=== PATIENT | male | born 1960 | race Caucasian/White ===

== ENCOUNTER → 2017-03-08 | Outpatient (CLI) | payer BC ==
--- NOTE | 2017-03-09 10:14 | XR ---
Right shoulder HISTORY: Right shoulder pain 3 views of the right shoulder There is joint space loss, hypertrophic change of the glenohumeral joint. Subchondral geodes formatio n, sclerosis is present. Alignment is maintained. Bone mineralization is maintained. Right lung apex as visualized is normal. IMPRESSION: Findings suggest osteoarthritis.
== END ==
LOC: RADXRYALE 10:02
PROVIDERS: ATTEND Physician Assistant Medical
DX: M75.02 Adhesive capsulitis of left shoulder (principal)

== ENCOUNTER → 2018-06-06 | Outpatient (CLI) | payer BC ==
--- NOTE | 2018-06-06 08:15 | CT ---
EXAMINATION TYPE: CT shoulder RT wo con DATE OF EXAM: 06/06/2018 COMPARISON: X-ray 03/08/2017 HISTORY: Pain CT DLP: 380 mGycm Automated exposure control for dose reduction was used. FINDINGS: Severe arthropathy with complete loss of joint space and suspected loss of articular cartilage. Hyper trophic spurring along the inferior margin of the humeral head which demonstrates some remodeling. Re modeling of the glenoid noted. There is a soft tissue calcification or ossification anterior to the glenohumeral joint. Likely also represents a small amount of fluid anteriorly to the glenohumeral joint extending medially which coul d be potentially within the subscapularis bursa. Synovial osteochondromatosis in the differential niyah gnosis. AC joint appears to be maintained. Osseous structures are intact. Visualized rib cage intact. Hypertr ophic change of the spine noted. Subsegmental posterior consolidation in the lungs likely related to dependent atelectasis. There is a pulmonary nodule measuring 3 mm in the right upper lobe. IMPRESSION: 1. Severe arthropathy of the glenohumeral joint with complete loss of joint space. 2. There is a 3 mm right upper lobe pulmonary nodule. CT of the chest is recommended. 3. Suspect a tiny joint effusion with probable bursal fluid collection anteromedially. Additionally t here is a soft tissue ossifications or calcifications anterior to the joint space. Synovial chondroma tosis in the differential diagnosis.
== END | disposition home or self-care (01) ==
LOC: RADCTMAIN 07:30
PROVIDERS: ATTEND Orthopaedic Surgery Sports Medicine
DX: M19.011 Primary osteoarthritis, right shoulder (principal)

== ENCOUNTER → 2018-07-07 | Outpatient (CLI) | payer BC ==
--- NOTE | 2018-07-07 08:19 | CT ---
EXAMINATION TYPE: CT chest wo con DATE OF EXAM: 07/07/2018 COMPARISON: CT right shoulder 06/06/[address] abdomen pelvis dated 12/26/2013 HISTORY: Follow up lung nodule seen on prior CT. CT DLP: 292.[address] of the chest was performed with lung and mediastinal window settings submitted. The la ck of contrast limits evaluation of the vascular, mediastinal and parenchymal structures including th e upper abdomen. LUNGS: The lungs are clear and free of infiltrate. No atelectasis. 3 mm pulmonary nodule right upper lobe image 18 of 78. Small 3 mm pleural-based nodule lateral segment right middle lobe. 4 mm pulmonar y nodule image 38 of 78 right lower lobe. No left-sided nodule seen. No evidence for pulmonary mass. No pleural effusion. No CT evidence of interstitial lung disease. MEDIASTINUM/JOVANNI: Thoracic aorta is of normal caliber with limited evaluation given lack of contrast . The heart is not enlarged. No evidence for mediastinal mass. No lymph nodes greater than 1cm. UPPER ABDOMEN: Previously described simple cyst left kidney. Nonobstructing bilateral nephrolithiasis . OTHER: No significant other abnormality. IMPRESSION: 1. Small nonspecific nodularity right lung. Follow-up study in 6 months is advised. 2. Nonobstructing nephrolithiasis in bilateral kidneys measuring up to 4 mm. 3. Cyst left kidney.
== END ==
LOC: RADCTMAIN 07:17
PROVIDERS: ATTEND Family Medicine
DX: R91.1 Solitary pulmonary nodule (principal)
CPT/HCPCS: 71250

== ENCOUNTER 2018-09-01 11:00 | Inpatient (IN) | payer BC ==
[2018-08-29 15:02] VITALS: BMI 28.7
[~2018-09-01 11:00] MED LIST: ACETAMINOPHEN TAB 500 MG TAB PO ONE; DEXAMETHASONE SOD PHOSPHATE 10 MG/ML 1 ML VIAL IV ONE; LIDOCAINE 1% 20 ML VIAL (10MG/ML) FOR IV START INTRADERMA PRN; MELOXICAM 7.5 MG TAB PO ONE; MIDAZOLAM (PF) 2 MG/2 ML VIAL IV PRN; ONDANSETRON 4 MG/2 ML VIAL IVP ONE; TRANEXAMIC ACID 1,000 MG in SODIUM CHLORIDE 0.9% 50 ML IVPB ONE; ceFAZolin IN SWFI 2 GM/20 ML SYRINGE IVP ONE; fentaNYL (PF) 50 MCG/ML 2 ML AMP IV PRN
[2018-09-01] MEDS: LACTATED RINGERS 1,000 ML IV ONE ×2 (12:41→15:57)
[2018-09-01] MEDS ORDERED: TEMAZEPAM 15 MG CAP PO PRN (13:29)
[2018-09-01] MEDS ORDERED: HYDROcodone/APAP 5-325MG 1 EACH TAB PO PRN ×2 (13:29)
[2018-09-01] MEDS ORDERED: METOCLOPRAMIDE 5 MG/ML 2 ML VIAL IVP PRN (13:29)
[2018-09-01] MEDS ORDERED: SENNOSIDES-DOCUSATE SODIUM 1 EACH TAB PO PRN (13:29)
[2018-09-01] MEDS ORDERED: PROCHLORPERAZINE SUPPOSITORY 25 MG SUPP RECTAL PRN (13:29)
[2018-09-01] MEDS ORDERED: diphenhydrAMINE 25 MG CAP PO PRN (13:29)
[2018-09-01] MEDS ORDERED: hydrOXYzine PAMOATE 25 MG CAP PO PRN (13:29)
[2018-09-01] MEDS ORDERED: HYDROmorphone 0.5 MG/0.5 ML SYRINGE IVP PRN ×2 (13:29)
[2018-09-01] MEDS ORDERED: HYDROmorphone 1 MG/ML 1 ML SYRINGE IVP PRN (13:29)
[2018-09-01] MEDS ORDERED: ONDANSETRON 4 MG/2 ML VIAL IVP PRN (13:29)
[2018-09-01] MEDS ORDERED: HYDROcodone/APAP 7.5-325MG 1 EACH TAB PO PRN ×2 (13:34)
[2018-09-01] MEDS ORDERED: HYDROcodone/APAP 10-325MG 1 EACH TAB PO PRN ×2 (13:34)
[2018-09-01] MEDS ORDERED: PHENYLEPHRINE-0.9% NACL SYG 1 MG/10 ML SYRINGE ONE (18:02)
[2018-09-01] MEDS ORDERED: NEOSTIGMINE 1 MG/ML 10 ML VIAL ONE (18:02)
[2018-09-01] MEDS ORDERED: fentaNYL (PF) 50 MCG/ML 2 ML AMP ONE (18:02)
[2018-09-01] MEDS ORDERED: SUCCINYLCHOLINE CHLORIDE 100 MG/5 ML SYR IV ONE (18:02)
[2018-09-01] MEDS ORDERED: ROPIVACAINE 5 MG/ML 30 ML VIAL ONE (18:02)
[2018-09-01] MEDS ORDERED: GLYCOPYRROLATE 0.2 MG/ML 2 ML VIAL ONE (18:02)
[2018-09-01] MEDS ORDERED: LIDOCAINE 1% INJ 10MG/ML (20 ML MDV) ONE (18:02)
[2018-09-01] MEDS ORDERED: MIDAZOLAM 2 MG/2 ML VIAL ONE (18:02)
[2018-09-01] MEDS ORDERED: ePHEDrine SULFATE/0.9% NACL/PF 50 MG/5 ML SYRINGE IV ONE (18:02)
[2018-09-01] MEDS ORDERED: ROCURONIUM BROMIDE 10 MG/ML 10 ML VIAL IV ONE (18:02)
[2018-09-01] MEDS ORDERED: PROPOFOL 10 MG/ML 20 ML VIAL IV ONE (18:02)
[2018-09-01] MEDS ORDERED: IV FLUID CONTINUATION 1,000 ML IV ONE (18:05)
[2018-09-01] MEDS ORDERED: VANCOMYCIN 1,000 MG VIAL MISCELLANE ONE (18:56)
[2018-09-01] MEDS ORDERED: ceFAZolin 3,000 MG in SODIUM CHLORIDE 0.9% IRRIGATIO 3,000 ML IRRIGATION ONE (18:57)
[2018-09-01] MEDS ORDERED: LACTATED RINGERS 1,000 ML IV ONE (19:48)
[2018-09-01 21:17] VITALS: RESP 16
[2018-09-01] MEDS: HYDROmorphone 1 MG/ML 1 ML SYRINGE IVP ONE ×2 (21:18→21:23)
--- NOTE | 2018-09-01 21:28 | XR ---
EXAMINATION TYPE: XR shoulder limited RT DATE OF EXAM: 09/01/2018 COMPARISON: NONE HISTORY: Postop shoulder surgery TECHNIQUE: Single view FINDINGS: There is a right shoulder prosthesis. Components appear in anatomic position. IMPRESSION: No complicating process seen.
[2018-09-01] MEDS: LACTATED RINGERS 1,000 ML IV SCH ×2 (22:07→23:16)
[2018-09-01] MEDS: ceFAZolin IN SWFI 2 GM/20 ML SYRINGE IVP SCH ×2 (23:17→23:36)
[2018-09-01] MEDS: DOXYCYCLINE 100 MG CAP PO SCH (23:37)
--- NOTE | 2018-09-02 00:58 | OP ---
OPERATIVE REPORT DATE OF PROCEDURE: 09/01/2018. SURGEON: Higinio Benedict MD. MAINTENANCE PARTS TECHNICIAN: Vijay HIGUERA. PREOPERATIVE DIAGNOSIS: Right shoulder osteoarthrosis. POSTOP DIAGNOSIS: Right shoulder osteoarthrosis. OPERATION PERFORMED: Right total shoulder arthroplasty. ANESTHESIA: General endotracheal. ESTIMATED BLOOD LOSS: 300 mL. DRAINS: One deep drain. COMPLICATIONS: None apparent. DISPOSITION: Postanesthesia care unit. INDICATIONS: Mr. Quiroz is a very pleasant 58-year-old gentleman with long-standing right shoulder pain. Workup including x-rays revealed advanced osteoarthrosis of the right shoulder. At this point it is felt that he has failed conservative management and he would like to proceed with operative intervention. The risks of procedure were discussed with him in detail. These risks include, but are not limited to risk of infection, nerve damage, bleeding, pain, instability in the shoulder, loosening of the implants and deep infection. There is also small risk of deep vein thrombosis which could lead to fatal pulmonary embolism. The patient understood the risks. All of his questions with regards to the risks of procedure were answered to his satisfaction. Appropriate informed consent was obtained. DESCRIPTION OF PROCEDURE: Patient was identified in the preoperative holding area. Surgical sites marked by both the patient and myself. He is given 2 g of Ancef IV for prophylaxis for prophylactic purposes. He was then transferred to the operative suite, where he was placed supine on the operative table. General anesthetic was then administered and dosed per the anesthesia without apparent complication. Examination under anesthesia was then performed of the right shoulder. He had elevation to passive elevation 120 degrees. External rotation at the side was to 30 degrees. He was then placed into the beach chair position well-padded in preparation for surgery. Great care was taken to ensure that this legs were appropriately padded and that his cervical spine is in neutral alignment well-padded and maintained that way throughout the operative procedure. The patient's right upper extremity is then prepped and draped in usual sterile fashion. Standard surgical pause undertaken to ensure that we were operating the correct site and that appropriate preoperative antibiotics were given. All staff in the room in agreement and we proceeded. The acromion AC joint clavicle and coracoid were marked with a surgical pen. A planned incision starting at the level of the clavicle and extending distally over the deltopectoral interval approximately 1 cm lateral to the coracoid was marked with a surgical pen. The incision was then made with a 10 blade scalpel. Dissection carried down sharply to the deltoid fascia. The deltopectoral interval was identified at the level of the clavicle. A small band retractor was then placed onto the proximal deltoid. I then released the deltoid fascia on the lateral aspect of the cephalic vein. The vein was then left in its bed medially. The cephalic vein was protected throughout the entire case. I then identified the clavipectoral fascia. This was incised proximally to the level of the coracoacromial ligament. The coracoacromial ligament was left intact. I then used my finger to spread the interval between the conjoint tendon and the subscapularis. I felt for the axillary nerve which was readily palpable. I then cleared the subacromial and subdeltoid spaces of bursal and scar tissue. I then utilized a Hill retractor to hold the deltoid and expose the humeral head. I then proceeded to release the subscapularis in the anterior inferior shoulder capsule. The rotator cuff was inspected. It was found to be intact. The course of the biceps tendon was also identified. I then performed a biceps tenodesis. The biceps was tenodesed to the soft tissue just distal to the bicipital groove. The rotator interval was identified. I then released the rotator interval. This was released at the base of the coracoid and then out laterally. The subscapularis and the capsule were released intratendinous. The subscapularis and capsule release extended distally in a lazy-S fashion approximately 1 cm medial to the biceps tendon. I then continued to release the capsule along the inferior neck in a vertical fashion to about the 6 o'clock position. Great care was taken to ensure that the capsule was always visualized as it was released to avoid injuring the axillary nerve. He had very extensive and large goat's patterson osteophytes. I then began to start removing these. This was done with a rongeur as well as with a osteotome. I then brought the Barrera meat grinder with the arm externally rotated and abducted. I continued to release the capsule inferomedially to the 4 o'clock position. I continued to remove the inferior osteophytes as well. Again this was done with a rongeur and an osteotome. Great care was taken to avoid injuring the axillary nerve during this part of the procedure. I then proceeded with preparation of the humerus. I continued to remove all the goat's patterson osteophytes. I then removed the subchondral plate from the superior aspect of the humeral head utilizing a large rongeur. I then used a starter reamer to gain access to the humeral canal. This was 1 cm medial to the rotator cuff insertion and 1 cm posterior to the bicipital groove. I then prepared the humeral canal with hand reaming. I started with a 6 mm reamer and progressed incrementally in 1 mm increments until firm resistance was encountered. This was at 14 mm. The reamer handle was then left in place. I then utilized a humeral resection guide set at 30 degrees of retrotorsion. The cutting block was set 1 to 2 mm above the insertion of the rotator cuff. I then proceeded to osteotomized the humeral head with an oscillating saw. I removed the resection guide and then completed the osteotomy. I then proceeded with 2 trial stem placement. A trial size 14 was then broached starting with a 6 mm broach and then incrementally increasing up to 14 mm broach. The broach was placed in 30 degrees of retrotorsion. The 14 mm trial stem was then left in place. I then proceeded with trial reduction. I started with a 50 x 21 x 57 head. This did seem to fit very nicely. The head fit opposite the glenoid. The rotator cuff was not tented. The internal rotation was to 90 degrees external rotation. Elevation was to 150 degrees and translation was one half of the humeral head in neutral rotation and one quarter of the humeral head inferiorly in 15-20 degrees of abduction. I then removed the trial head. The stem was then left in place. I then proceeded with exposure of the glenoid. At this point, I inspected the glenohumeral joint for any loose bodies. Then again inspected the rotator cuff, which was intact. The Batman retractor was then placed on the posterior glenoid rim. The arm was placed in approximately 70-80 degrees of abduction and in slight flexion on a Barrera stand. I then proceeded to remove the hypertrophic labrum to definitively identify the actual glenoid. I then selected the size of the glenoid. A large-size glenoid seemed to fit very nicely. I then utilized a starting drill to make the centering hole. I then proceeded to ream the glenoid fossa. This was done with a large size reamer. There was a tiny bit of posterior inferior loss. I preferentially took slightly more anterior glenoid with the reaming. Reaming was taken down to paprika signs. I had a nice bleeding surface. Great care was taken to preserve as much of subchondral bone as possible. I then proceeded to place the glenoid drill holes. The peripheral drill holes were then placed and the center hole was also drilled as well. I then placed a trial size large size glenoid. It fit very nicely on the glenoid. I then proceeded with cementing. I Waterpik'd the wound and the bone. The drill holes were then packed with [employer] sponges. The cement was then mixed on the back table by the hospital aides and assistants teacher. The drill holes were then packed with cement utilizing a 20 mL syringe. These were packed very tightly. No cement was placed in the central PEG, which was the Regenerex central PEG from the glenoid component. I then impacted the real glenoid component into place. It was a Biomet large-sized pegged glenoid component with a Regenerex central peg. Excess cement was removed utilizing a freer elevator. Pressure was held on the glenoid component until the cement had hardened. I then removed the Coude retractor. I then proceeded with the humeral component trial reduction with the actual with the real glenoid in place. The 21 x 57 head was then placed back onto the stem. Again it was taken through trial. The head set opposite the glenoid. The rotator cuff was not tented. Elevation was 250 degrees. Internal rotation was to 90 degrees and translation was one half of the head in neutral rotation and one quarter of the head in 15-20 degrees of abduction. I then had the volunteer patient representative open the 50 x 21 x 57 real head and a size 14 Biomet mini stem. The stem was then impacted into the canal and 30 degrees of retrotorsion. The real head was then impacted onto the stem. The shoulder was then reduced. I then proceeded with closure. Again the wound was thoroughly irrigated with sterile saline solution with antibiotic added. The rotator interval was closed with interrupted #2 coated Vicryl. The subscapularis was closed with interrupted #2 FiberWire. Deep drain was then placed and brought out superiorly away from the incision. Approximately 500 mg of vancomycin powder was then placed deep into the wound. The deltopectoral interval was then closed with 0 Vicryl suture. The wound was again thoroughly irrigated with sterile saline solution with antibiotic added. The remaining 500 mg of vancomycin powder was then placed subcutaneously in the wound. The subcutaneous tissue was then closed with 2-0 Vicryl interrupted suture. The skin was closed with a running 3-0 Quill suture. Sterile compressive dressing was then applied. The patient's right upper extremity was then placed into a shoulder immobilizer. All sponge and needle counts were deemed correct prior to closure. The patient tolerated the procedure without apparent complication. He is transferred recovery room in stable condition. Of note, prior to closing the deltopectoral interval, I did feel for the axillary nerve and it was intact. The tug test was normal. MMODL / IJN: [id number] /
[2018-09-02] MEDS: LACTATED RINGERS 1,000 ML IV SCH ×3 (06:09→09:48)
[2018-09-02 07:23] LABS: Basophils % (A) 0 %; Eosinophils % (A) 0 %; HCT 39.9 % (39.0-53.0); HGB 13.6 gm/dL (13.0-17.5); Lymphocytes # (A) 1.4 k/uL (1.0-4.8); Lymphocytes % (A) 11 %; MCH 30.1 pg (25.0-35.0); MCHC 34.1 g/dL (31.0-37.0); MCV 88.2 fL (80.0-100.0); Mean Platelet Volume 7.3; Monocytes # (A) 0.6 k/uL (0-1.0); Monocytes % (A) 4 %; Neutrophils % (A) 84 %; Platelet Count 216 k/uL (150-450); RBC 4.53 m/uL (4.30-5.90); RDW 12.7 % (11.5-15.5); WBC 13.1 k/uL (3.8-10.6)
--- NOTE | 2018-09-02 07:43 | P.ONQ ---
Anesthesiology Proc Note - PNB - Peripheral Nerve Block Performed Right Interscalene Single Time Out Performed: Yes Procedure Start Time: 21:33 Procedure Stop Time: 21:35 Indication: Acute Post-Operative Pain, Requested by physician Sedation Type: Sedate with meaningful contact maintained Preparation: Sterile Prep Position: Supine Needle Size: 50mm (2") Needle Gauge: 21 Technique: Ultrasound (ropi .5% 30cc) Blood Aspirated: No Pain Paresthesia on Injection Noted: No Resistance on Injection: Normal Events: Uneventful and Well Tolerated
[2018-09-02] MEDS: DOXYCYCLINE 100 MG CAP PO SCH (09:47)
--- NOTE | 2018-09-02 10:09 | P.CON ---
Consult Note - . Consult date: 09/02/18 Assessment/Plan:: Reason for consult: Leukocytosis, medical management. HPI: This is a very pleasant 58-year-old gentleman with no significant past medical history is seen status post right shoulder total arthroplasty last night. This morning the patient complains of no fever no chills, no chest pain or racing heart, no cough no shortness of breath, no abdominal pain, nausea and vomiting, no diarrhea constipation, no tingling numbness of any of the extremities except for the right 2 fingers which probably is because of the surgery, no itch no rash. He does not complain of an of urinary problems. REVIEW OF SYSTEMS: ENT: No diminished vision or hearing. CARDIOVASCULAR: Mentioned earlier. RESPIRATORY: As mentioned earlier. GI: No nauscea, vomiting or diarrhea. : No dysuria or retention. NERVOUS SYSTEM: No numbness or weakness. ALLERGY/IMMUNOLOGY: No asthma or hay fever. MUSCULOSKELETAL: As mentioned earlier. HEMATOLOGY/ONCOLOGY: No history of anemia. ENDOCRINE: No history of diabetes or hypothyroidism. CONSTITUTIONAL: As mentioned earlier. DERMATOLOGY: Negative. PSYCHIATRY: Mentioned earlier. RHEUMATOLOGY: Negative. Past medical history: No significant past medical history except for right shoulder arthritis Past surgical history: Prostate removal, hernia repair with mesh Family history: Noncontributory Social history: Patient says that he doesn't smoke, drink socially, no history of any marijuana or cocaine use. Next Physical exam Vitals: Reviewed and are stable Gen. appearance: Patient has a sling status post right shoulder surgery otherwise he doesn't look to be in distress HEENT: Head atraumatic normocephalic, PERRLA, no pallor no icterus, no pain or discharge from the ear or nose Throat: No erythema no exudate Neck: No JVD no neck enlargement or thyroid enlargement CVS: S1-S2 positive Respiration: Breath sounds heard equally both sides no rhonchi,,, no rales, no wheezing Neuro: Alert oriented 3, reflexes 2+ all extremities, strength 5 out of 5 positive on extremities Extremities: No edema pulses positive Assessment - Leukocytosis probably reactive - Status post right shoulder arthroplasty Plan - Patient has leukocytosis which is probably reactive patient does not complain of any chest pain racing heart, no urinary trouble, he does not look toxic. -We will therefore hold off on all the antibiotics - Patient is okay to discharge from medical point of view and follow up as an outpatient - We'll continue to follow the patient while in the hospital. - DVT prophylaxis as per primary team
--- NOTE | 2018-09-02 11:43 | P.DS ---
Providers Date of admission: 09/01/18 15:35 Expected date of discharge: 09/02/18 Attending physician: Higinio Benedict Consults: 09/01/18 13:29 Consult Physician Routine Consulting Provider: Elijah Whittington Consult Reason/Comments: post op medical management Do you want consulting provider notified?: Yes Primary care physician: Ashok Daniel - Discharge Diagnosis(es) (1) Osteoarthritis of right shoulder Patient was admitted to the OR on 09/01/2018 to undergo a right total shoulder arthroplasty. He had failed conservative measures as an outpatient and desired to proceed with elective surgery after given informed consent. He underwent the above procedure which he tolerated well without complication. Postoperative hospital course has remained without complication. On day of discharge he is afebrile, vital signs stable, labs within acceptable ranges, tolerating by mouth meds and diet, voiding without difficulty, positive flatus, denies abdominal pain or calf pain, pain is controlled on oral pain medication and has no new complaints. Wound is benign, neurovascular status is intact, calf is soft and nontender, abdomen soft and nontender. Review of systems is negative for numbness, tingling, fever, chills, chest pain, shortness breath, nausea, vomiting, dizziness, headaches, slurred speech or other. Current Visit: Yes Status: Acute Priority: Medium Procedures: Right Total Shoulder arthroplasty Patient Condition at Discharge: Good Plan - Discharge Summary Discharge Rx Participant: Yes New Discharge Prescriptions: New Aspirin 325 mg PO BID #60 tab Docusate [Colace] 100 mg PO BID #60 capsule HYDROcodone/APAP 7.5-325MG [[place] 7.5-325] 1 - 2 each PO Q6HR PRN #56 tab PRN Reason: Pain Discharge Medication List Aspirin 325 mg PO BID #60 tab 09/02/18 [Rx] Docusate [Colace] 100 mg PO BID #60 capsule 09/02/18 [Rx] HYDROcodone/APAP 7.5-325MG [[place] 7.5-325] 1 - 2 each PO Q6HR PRN #56 tab [Rx] Follow up Appointment(s)/Referral(s): Higinio Benedict MD [STAFF PHYSICIAN] - 10 Days Activity/Diet/Wound Care/Special Instructions: Keep wound clean and dry Take meds as directed Follow-up with Dr. Benedict in office Maintain sling Nonweightbearing right up extremity May shower in 3 days if no bleeding Discharge Disposition: HOME WITH HOME HEALTH SERVICES
[2018-09-02 14:20] VITALS: BP 139/79; PULSE 67; TEMP 98
== END 2018-09-02 18:50 | disposition home health service (06) | DRG 483 ==
LOC: 2ORMAIN 15:35 → 4SSUR 22:25
PROVIDERS: ADMIT Orthopaedic Surgery Sports Medicine; ATTEND Orthopaedic Surgery Sports Medicine
PROC: 0RRJ00Z Replacement of Right Shoulder Joint with Reverse Ball and Socket Synthetic Substitute, Open Approach (ICD-10-PCS; principal; 2018-09-01 17:35)
DX: M19.011 Primary osteoarthritis, right shoulder (principal); Z82.49 Family history of ischemic heart disease and other diseases of the circulatory system; D72.829 Elevated white blood cell count, unspecified
CPT/HCPCS: 64415; 85025

== ENCOUNTER → 2019-08-29 | Outpatient (CLI) | payer BC ==
--- NOTE | 2019-08-30 08:09 | CT ---
EXAMINATION TYPE: CT chest wo con DATE OF EXAM: 08/29/2019 COMPARISON: 07/07/2018 HISTORY: abnormal cxr CT DLP: 373.1 mGycm, Automated exposure control for dose reduction was used. CONTRAST: Performed injected with 0 mL of Isovue 300. TECHNIQUE: Axial images were obtained at 5 mm thick sections. Reconstructed images are reviewed on [facility] computer in the coronal plane. FINDINGS: Portion of the thyroid visualized is normal. There is a 0.4 cm nodule within the periphery of the posterior lateral right apex. Series 4 image 13. There is a 0.3 cm peripheral nodule within the right midlung. Series 4 image 28. A couple of new left lung nodules are identified. There is a 0.4 cm nodule within the periphery of t he anterior lateral left upper lobe. A 0.3 cm nodule is in the periphery of the anterolateral left m idlung. Series 4 image 24. No enlarged mediastinal or hilar adenopathy is evident. The ascending aorta diameter at the level o f the main pulmonary artery is 3.7 cm. The main pulmonary artery diameter at the bifurcation is 2.2 cm. Mild coronary artery calcifications present. Limited CT sections are obtained through the upper abdomen. 0.3 cm nonobstructing calcifications are within the mid kidneys bilaterally. IMPRESSIONS: 1. Couple of small stable nodules on the right. A couple of new nodules may be on the left. Continued monitoring is recommended with a follow-up CT chest in 6 months
== END | disposition home or self-care (01) ==
LOC: RADCTMAIN 16:41
PROVIDERS: ATTEND Family Medicine
DX: R91.8 Other nonspecific abnormal finding of lung field (principal)
CPT/HCPCS: 71250

== ENCOUNTER → 2020-03-29 | Outpatient (CLI) | payer BC ==
--- NOTE | 2020-03-29 08:18 | CT ---
EXAMINATION TYPE: CT chest wo con DATE OF EXAM: 03/29/2020 COMPARISON: 08/29/2019 HISTORY: follow up known pulmonary nodule CT DLP: [address] of the chest was performed with lung and mediastinal window settings submitted. The la ck of contrast limits evaluation of the vascular, mediastinal and parenchymal structures including th e upper abdomen. LUNGS: 3 mm pleural-based nodular density right upper lobe posteriorly image 15. 3 mm right upper lob e pulmonary nodule anteriorly image 19. 3.3 mm groundglass nodule right lower lobe superior segment i mage 33. 4 mm left upper lobe nodule image 28. No new nodules identified. No focal infiltrates seen. MEDIASTINUM/JOVANNI: Thoracic aorta is of normal caliber with limited evaluation given lack of contrast . The heart is not enlarged. No evidence for mediastinal mass. No lymph nodes greater than 1cm. UPPER ABDOMEN: 3 mm nonobstructing calculus upper pole left kidney. OTHER: No significant other abnormality. IMPRESSION: 1. Stable tiny nonspecific pulmonary nodules. Stability over a two-year timeframe should be document ed radiographically. Follow-up study in 6 months advised.
== END | disposition home or self-care (01) ==
LOC: RADCTMAIN 07:53
PROVIDERS: ATTEND Family Medicine
DX: R91.8 Other nonspecific abnormal finding of lung field (principal)
CPT/HCPCS: 71250

== ENCOUNTER → 2020-05-07 | Outpatient (CLI) | payer BC ==
--- NOTE | 2020-05-07 13:02 | US ---
EXAMINATION TYPE: US kidneys/renal and bladder DATE OF EXAM: 05/07/2020 COMPARISON: NONE CLINICAL HISTORY: N28.1 Cyst of kidney. EXAM MEASUREMENTS: Right Kidney: 11.4 x 4.9 x 6.2 cm Left Kidney: 11.8 x 6.4 x 6.4 cm Right Kidney: No hydronephrosis or masses seen Left Kidney: 2 probable cyst measuring, 1.) 1.9 x 2.6 x 2.0cm 2.) 2.0 x 2.5 x 2.2cm, probable stone, measuring 0.4 x 0.4 x 0.4cm Bladder: wnl Bilateral Jets seen: No There is no evidence for hydronephrosis at this point in time. No nephrolithiasis is seen. No solid masses are identified. The urinary bladder is anechoic. Bilateral ureteral jets are seen. IMPRESSION: Left renal cystic changes as noted.
== END | disposition home or self-care (01) ==
LOC: RADUSWWP 12:07
PROVIDERS: ATTEND Urology
DX: N28.1 Cyst of kidney, acquired (principal)
CPT/HCPCS: 76770

== ENCOUNTER 2020-07-12 08:31 | Day surgery (SDC) | payer BC ==
[2020-07-11 09:34] VITALS: BMI 28.5
[~2020-07-12 08:31] MED LIST changes: -ACETAMINOPHEN TAB 500 MG TAB PO ONE; -DEXAMETHASONE SOD PHOSPHATE 10 MG/ML 1 ML VIAL IV ONE; +LACTATED RINGERS 1,000 ML IV SCH; +LIDOCAINE 1% (10MG/ML) FOR IV START INTRADERMA PRN; -LIDOCAINE 1% 20 ML VIAL (10MG/ML) FOR IV START INTRADERMA PRN; -MELOXICAM 7.5 MG TAB PO ONE; -MIDAZOLAM (PF) 2 MG/2 ML VIAL IV PRN; -ONDANSETRON 4 MG/2 ML VIAL IVP ONE; -TRANEXAMIC ACID 1,000 MG in SODIUM CHLORIDE 0.9% 50 ML IVPB ONE; -ceFAZolin IN SWFI 2 GM/20 ML SYRINGE IVP ONE; -fentaNYL (PF) 50 MCG/ML 2 ML AMP IV PRN
[2020-07-12 09:00] VITALS: TEMP 97.7
[2020-07-12] MEDS ORDERED: PROPOFOL 10 MG/ML 20 ML VIAL IV ONE (09:25)
--- NOTE | 2020-07-12 09:56 | P.PCN ---
Date of Procedure: 07/12/20 Procedure(s) Performed: BRIEF HISTORY: Patient is a 59-year-old pleasant white male scheduled for an elective colonoscopy as a part of screening for colorectal neoplasia. PROCEDURE PERFORMED: Colonoscop with snare polypectomy . PREOPERATIVE DIAGNOSIS: Greening for colon cancer. IV sedation per Anesthesia. PROCEDURE: After informed consent was obtained, the patient, was brought into the endoscopy unit. IV sedation was administered by Anesthesia under continuous monitoring. Digital rectal examination was normal. Initially the Olympus CF-160 flexible video colonoscope was then inserted in the rectum, gradually advanced into the cecum without any difficulty. Careful examination was performed as the scope was gradually being withdrawn. Ileocecal valve and the appendiceal orifice were visualized and appeared normal. Prep was excellent. In the cecum there were 2 polyps measuring 5 mm and 7 mm size both of which were sessile and broad- based removed by snare polypectomy. Mucosa of the cecum, ascending colon, transverse colon, descending colon, sigmoid colon, and rectum appeared normal. Retroflexion was performed in the rectum and no lesions were seen. The patient tolerated the procedure well. IMPRESSION: 5 mm and 7 mm cecal polyp status post polypectomy Rest of the colon appeared normal RECOMMENDATIONS: Findings of this examination were discussed with the patient as well as his family. He was advised to follow with the biopsy results. If the biopsy shows an adenoma he can have a repeat colonoscopy in 5 years..
[2020-07-12 10:16] VITALS: BP 145/77; PULSE 57; RESP 16
== END 2020-07-12 10:53 | disposition home or self-care (01) ==
LOC: ORWHC2ENDO 08:31
PROVIDERS: ATTEND Internal Medicine Gastroenterology
DX: Z12.11 Encounter for screening for malignant neoplasm of colon (principal); D12.0 Benign neoplasm of cecum; Z85.46 Personal history of malignant neoplasm of prostate; Z88.0 Allergy status to penicillin
CPT/HCPCS: 45385; 88305; J2704

== ENCOUNTER → 2021-07-25 | Outpatient (CLI) | payer BC ==
--- NOTE | 2021-07-26 15:26 | XR ---
EXAMINATION TYPE: XR cervical spine comp DATE OF EXAM: 07/25/2021 COMPARISON: None HISTORY: Cervicalgia TECHNIQUE: 5 view cervical spine FINDINGS: The odontoid as visualized appears normal. Tip is obscured by the occiput. Prevertebral spa ce is normal. Anterior vertebral body spurring is present C5-C7. There appears to be some kyphosis ce ntered at C6. Posterior spinal lamellar line appears intact. Foraminal stenosis present C5-6 bilatera lly greater on the right. Foraminal stenosis is also present at C3-4 and to a lesser degree C4-5 on t he left. IMPRESSION: 1. Multilevel degenerative changes. No acute osseous abnormality is evident. Foraminal stenosis is p resent. Consider MRI for additional workup.
--- NOTE | 2021-07-26 15:26 | XR ---
EXAMINATION TYPE: XR lumbosacral spine min 4V DATE OF EXAM: 07/25/2021 COMPARISON: None HISTORY: Lumbar pain TECHNIQUE: 5 view lumbar spine FINDINGS: There is loss of disc height through the lumbar spine. There is straightening of the lumbar spine in the lateral projection. Some wedge deformity is present T12. Mild scoliosis is present. Fac et degenerative changes are present. No spondylolytic defects are evident. IMPRESSION: 1. Degenerative disc changes throughout the lumbar spine. 2. Spondylosis.
== END | disposition home or self-care (01) ==
LOC: RADXRYALE 16:33
PROVIDERS: ATTEND Family Medicine
DX: M47.816 Spondylosis without myelopathy or radiculopathy, lumbar region (principal); M47.812 Spondylosis without myelopathy or radiculopathy, cervical region; M99.71 Connective tissue and disc stenosis of intervertebral foramina of cervical region
CPT/HCPCS: 72050; 72110

== ENCOUNTER → 2021-08-30 | Outpatient (CLI) | payer BC ==
--- NOTE | 2021-08-30 20:33 | MR ---
EXAMINATION TYPE: MR cervical spine wo con DATE OF EXAM: 08/30/2021 COMPARISON: None HISTORY: Cervicalgia, Disc degeneration Multiplanar multiecho imaging of the cervical spine without contrast. Cervical vertebra have fairly normal alignment. There is a slight dextroscoliosis. There is posterior endplate spur formation and disc bulging from C3 to C7. There is facet arthropathy and narrowing of the spinal canal at C5-4 and C4-5. Canal measures 6.5 mm at C3-4. Canal measures 6 mm at C4-5. There is some edema in the cord at the C4-5 level. There is mild flattening of the cord. The brainstem is i ntact. There is no compression fracture. There is a very minimal C4-5 subluxation. I see no focal bon e destruction. IMPRESSION: Spinal stenosis at C3-4 and C4-5. There is some edema in the cord and myelomalacia at the C4-5 level. No fracture.
== END | disposition home or self-care (01) ==
LOC: RADMRIMAIN 15:14
PROVIDERS: ATTEND Family Medicine
DX: M50.320 Other cervical disc degeneration, mid-cervical region, unspecified level (principal); M48.02 Spinal stenosis, cervical region; G95.89 Other specified diseases of spinal cord
CPT/HCPCS: 72141

== ENCOUNTER → 2021-11-28 | Outpatient (CLI) | payer BC ==
[2021-11-28 17:08] LABS: Appearance,Urine Clear (Clear); Bilirubin,Urine Negative (Negative); Blood,Urine Negative (Negative); Color,Urine Light Yellow; Glucose,Urine (UA) Negative (Negative); Ketones,Urine Negative (Negative); Leukocyte Esterase,Urine Negative (Negative); Nitrite,Urine Negative (Negative); Protein,Urine Negative (Negative); Specific Gravity,Urine 1.004 (1.001-1.035); Urobilinogen,Urine <2.0 mg/dL (<2.0)
[2021-11-28 17:14] LABS: Partial Thromboplastin Time 24.8 sec (22.0-30.0)
[2021-11-28 21:26] LABS: INR 1.1 (<1.2); Prothrombin Time 11.8 sec (9.0-12.0)
[2021-11-29 00:44] LABS: African American GFR (CKD) 93.1 (60.0-200.0); Albumin 4.4 g/dL (3.8-4.9); Albumin/Globulin Ratio 1.76 (1.60-3.17); Anion Gap 13.5 mmol/L (10.00-18.00); BUN/Creat Ratio 18.2 Ratio (12.00-20.00); Blood Urea Nitrogen 18.2 mg/dL (9.0-27.0); Calcium 9.3 mg/dL (8.7-10.3); Carbon Dioxide 21.5 mmol/L (20.0-27.5); Globulin 2.5 g/dL (1.6-3.3); Non-African American GFR(CKD) 80.3 (60.0-200.0); Potassium 3.7 mmol/L (3.5-5.5); Total Bilirubin 1.7 mg/dL (0.30-1.20); Total Protein 6.9 g/dL (6.2-8.2)
[2021-11-29 01:14] LABS: HCT 41.5 % (39.6-50.0); HGB 14.1 g/dL (13.0-17.0); MCH 30.1 pg (27.0-32.0); MCV 88.5 fL (80.0-97.0); Mean Platelet Volume 11.1 fL (9.5-12.2); NRBC Per 100 WBC 0 /100 WBCS (0.0-0.0); Platelet Count 231 X 10*3/uL (140-440); RBC 4.69 X 10*6/uL (4.40-5.60); RDW 12.4 % (11.5-14.5)
--- NOTE | 2021-11-29 07:21 | XR ---
EXAMINATION TYPE: XR chest 2V DATE OF EXAM: 11/28/2021 COMPARISON: Chest CT March 29, 2020 HISTORY: Presurgical study. TECHNIQUE: Frontal and lateral views of the chest are obtained. FINDINGS: There is no focal air space opacity, pleural effusion, or pneumothorax seen. The cardiac silhouette size remains within normal limits. Postsurgical change to the right shoulder is partially imaged IMPRESSION: No acute process.
== END | disposition home or self-care (01) ==
LOC: LABWHC1 15:43
PROVIDERS: ATTEND Orthopaedic Surgery Orthopaedic Surgery of the Spine
DX: Z01.818 Encounter for other preprocedural examination (principal); I49.3 Ventricular premature depolarization; I45.10 Unspecified right bundle-branch block; M48.02 Spinal stenosis, cervical region
CPT/HCPCS: 71046; 80053; 81003; 85027; 85610; 85730; 87070; 93005

== ENCOUNTER 2021-12-24 06:21 | Observation (INO) | payer BC ==
[2021-12-22 10:15] VITALS: BMI 31.0
[~2021-12-24 06:21] MED LIST changes: -LACTATED RINGERS 1,000 ML IV SCH; -LIDOCAINE 1% (10MG/ML) FOR IV START INTRADERMA PRN; +ceFAZolin 1,000 MG in SODIUM CHLORIDE 0.9% IRRIGATIO 1,000 ML IRRIGATION PRN
[2021-12-24] MEDS ORDERED: MIDAZOLAM 2 MG/2 ML VIAL IV PRN (06:35)
[2021-12-24] MEDS ORDERED: DEXAMETHASONE SOD PHOSPHATE 4 MG/ML 1 ML VIAL IV ONE (06:35)
[2021-12-24] MEDS ORDERED: LIDOCAINE 1% (10MG/ML) FOR IV START INTRADERMA PRN (06:35)
[2021-12-24] MEDS: LACTATED RINGERS 1,000 ML IV SCH (06:50)
[2021-12-24] MEDS ORDERED: HYDROmorphone 0.5 MG/0.5 ML SYRINGE IVP PRN ×2 (07:00→10:59)
[2021-12-24] MEDS: ONDANSETRON 4 MG/2 ML VIAL IVP ONE ×2 (07:04→15:10)
[2021-12-24] MEDS ORDERED: fentaNYL (PF) 50 MCG/ML 2 ML AMP ONE (07:26)
[2021-12-24] MEDS ORDERED: ROCURONIUM 10 MG/ML (5 ML VIAL) IV ONE (07:26)
[2021-12-24] MEDS ORDERED: ePHEDrine 50 MG/ML 1 ML VIAL ONE (07:26)
[2021-12-24] MEDS ORDERED: LIDOCAINE 1% INJ 10MG/ML (20 ML MDV) ONE (07:26)
[2021-12-24] MEDS ORDERED: GLYCOPYRROLATE 0.2 MG/ML 2 ML VIAL ONE (07:26)
[2021-12-24] MEDS ORDERED: NEOSTIGMINE 1 MG/ML 10 ML VIAL ONE (07:26)
[2021-12-24] MEDS ORDERED: DEXAMETHASONE SOD PHOS (MDV) 100 MG/10 ML VIAL ONE (07:26)
[2021-12-24] MEDS ORDERED: HYDROmorphone (PF) 1 MG/ML ONE (07:26)
[2021-12-24] MEDS ORDERED: PROPOFOL 10 MG/ML 20 ML VIAL IV ONE (07:26)
[2021-12-24] MEDS ORDERED: SUCCINYLCHOLINE CHLORIDE 100 MG/5 ML SYR IV ONE (07:26)
[2021-12-24] MEDS ORDERED: MIDAZOLAM 2 MG/2 ML VIAL ONE (07:26)
[2021-12-24] MEDS ORDERED: GELATIN SPONGE,ABSORB (LARGE) 1 EACH SPONGE TOPICAL ONE (07:29)
[2021-12-24] MEDS ORDERED: LIDOCAINE 0.5%-EPI 1:200,000 50 ML VIAL SQ ONE (07:29)
[2021-12-24] MEDS ORDERED: THROMBIN (BOVINE) 5,000 UNIT VIAL TOPICAL ONE (07:29)
--- NOTE | 2021-12-24 08:47 | XR ---
EXAMINATION TYPE: XR cervical spine 1V DATE OF EXAM: 12/24/2021 COMPARISON: NONE HISTORY: Needle placement TECHNIQUE: Four views are submitted. FINDINGS: The odontoid is intact. There are no compression deformities. The prevertebral soft tissue structur es are within normal limits. There is a surgical metallic instrument anterior to the vertebral colum n. ET tube is suggested. There is multilevel degenerative disc disease, spurring and facet arthropath y. IMPRESSION: 1. Needle placement.
[2021-12-24] MEDS ORDERED: LACTATED RINGERS 1,000 ML IV ONE (09:57)
[2021-12-24] MEDS ORDERED: CYCLOBENZAPRINE 10 MG TAB PO PRN (10:59)
[2021-12-24] MEDS ORDERED: ONDANSETRON 4 MG/2 ML VIAL IVP PRN (10:59)
[2021-12-24] MEDS ORDERED: ACETAMINOPHEN TAB 325 MG TAB PO PRN (10:59)
[2021-12-24] MEDS ORDERED: HYDROcodone/APAP 5-325MG 1 EACH TAB PO PRN (10:59)
[2021-12-24] MEDS ORDERED: HYDROmorphone 1 MG/ML 1 ML SYRINGE IVP PRN (10:59)
[2021-12-24] MEDS ORDERED: BENZOCAINE/MENTHOL LOZENG 1 EACH LOZENGE MUCOUS MEM PRN (10:59)
--- NOTE | 2021-12-24 11:07 | P.OP ---
Date of Procedure: 12/24/21 Preoperative Diagnosis: Severe cervical stenosis C3 4 C4 5 C5 6 C6 7, herniated nucleus pulposus C3 4 C4 5 C5 6 C6 7, cervical myelopathy, upper extremity radiculopathy, extremity weakness, degenerative disc disease Postoperative Diagnosis: Same Anesthesia: GETA Pathology: none sent Condition: stable Disposition: PACU Description of Procedure: BRIEF OPERATIVE NOTE Preoperative Diagnosis:Severe cervical stenosis C3 4 C4 5 C5 6 C6 7, herniated nucleus pulposus C3 4 C4 5 C5 6 C6 7, cervical myelopathy, upper extremity radiculopathy, extremity weakness, degenerative disc disease Postoperative Diagnosis:Severe cervical stenosis C3 4 C4 5 C5 6 C6 7, herniated nucleus pulposus C3 4 C4 5 C5 6 C6 7, cervical myelopathy, upper extremity radiculopathy, extremity weakness, degenerative disc disease Procedure: Anterior cervical decompression with discectomy and fusion C3 4 C4 5 C5 6 C6-7 Placement of interbody graft C3 4 C4 5 C5 6 C6-7 Application of anterior cervical plate C3 4 C4 5 C5 6 C6-7 Surgeon: Dr. Welch Typewriter Aligner: Fareed FRANCIS who is present throughout the entire the case persistence during positioning, dissection, exposure, visualization, and all crucial elements of the case as well as closure. Anesthesia: General anesthesia Estimated blood loss: Approximately 100 mL Complications: None apparent Components implanted: K2M [place] anterior cervical plate system with screws and Vikos interbody allograft bone graft with 1 mL of DBX bone putty Disposition: To recovery room in good stable condition. OPERATIVE INDICATIONS The patient has had long-standing issues in their neck and upper extremities. The patient has been having worsening of his neck and his upper extremities despite conservative treatment. His found have significant changes at his cervical spine with severe stenosis C3 4 C4 5 C5 6 and C6 7. He was noticing some dexterity changes and changes in his gait consistent with myelopathy as well. His found have significant changes at his cervical spine imaging including some myelomalacia. The patient has been through conservative treatment. We discussed various treatment options including surgery, and the patient wishes to proceed with surgery We discussed the risk, patient's alternatives and benefits of surgery including but not limited to, risk of bleeding risk of infection, risk of need for further surgery, risk of decreased, loss of motion, muscle function, malunion nonunion, hardware failure, nerve damage, paralysis, heart attack, and . OPERATIVE SUMMARY After discussing all the risks, patient alternatives and benefits at length, the patient elected to proceed with surgical intervention, signed informed consent, and presented for their procedure. The patient was seen and examined in the preoperative holding area and the surgical site was marked. The patient was given antibiotics and brought to the operating room. The patient was positioned on the operating room table in a supine position being careful to pad any bony prominences and pressure points. The patient was sedated and intubated by anesthesia in standard fashion. Once the airway and C- spine were stabilized the patient's arms were padded and tucked at her side, with her shoulders gently taped. The head was placed in a donut pad with the neck in good neutral alignment and position. We were careful to maintain the patient's cervical spine and good neutral alignment and position throughout. The patient was prepped and draped in a normal standard fashion. An appropriate timeout and keystone protocol performed. We were able to proceed with the surgery. The local wound area was infiltrated with local anesthetic. An incision was made vertically approximately 2-1/2 cm over the appropriate levels on the right from C4 to C7. Dissection was taken down subcutaneously to the level of the platysma which was split in line with its fibers. Dissection was taken with a carotid approach, with the trachea and esophagus medial and the carotid sheath laterally. We dissected down to the anterior surface of the vertebral bodies. Intraoperative x-ray was taken which showed a marker at the appropriate level of C4 5. With the appropriate level positively confirmed, we were able to proceed with discectomy at the appropriate levels starting at C3 4 and then moving caudal to C4 5 and C5 6 and then C6 7. All of the operative levels were exposed appropriately. The patient had all their twitches back, and there was no evidence of recurrent laryngeal issue. The wound was copiously irrigated and suctioned dry as had been done periodically throughout the case. At the appropriate level/levels, I established an annulotomy with an 11 blade scalpel. And remove numerous large anterior cervical osteophytes particularly at C5 6 and C6 7 T appropriate access and to provide appropriate contour of anterior vertebral bodies. A discectomy was performed with a combination of pituitary rongeurs, curettes, a high-speed bur, and Kerrison rongeurs. The posterior longitudinal ligament was taken down as were any posterior osteophytes. This gave good central and bilateral foraminal decompression. There is no evidence of any dural tear or leak. The endplates were prepared with a high-speed bur. With the endplates in good parallel position, I was able to size for the appropriate size interbody graft. The wound was irrigated and suctioned dry the graft was prepared and malleted into position. It had good alignment and position with the anterior surface flush with the anterior surface of the vertebral bodies. This was done similarly the appropriate levels from C3 4 C4 5 C5 6 and C6 7. With the grafts intact, I was able to measure and contour and appropriate sized plate. The plate was positioned at the midline over the appropriate levels from C3 to C7. Screw holes were established with a hand drill and drill guide. Screws were placed in good alignment and position with excellent bony purchase. They were seated under the locking device. The construct was checked and found to be stable. Intraoperative x-ray was taken which showed good alignment and position of the implants at the appropriate levels. There was no evidence of any dural tear or leak. Good hemostasis was maintained. The wound was copiously irrigated and suctioned dry as had been done periodically throughout the case. The platysma was closed with absorbable suture. The subcutaneous tissue was closed. The subcuticular tissue was closed with absorbable suture. The wound was cleaned and dried and dressed appropriately. A soft cervical collar was placed appropriately. The patient was woken up by anesthesia, extubated, transferred back gently to their hospital bed and brought to the recovery room in good stable condition. The patient will be admitted to the hospital for appropriate postoperative care, medical management and monitoring. We will continue to follow them closely about the postoperative course.
[2021-12-24 11:08] LABS: Glucose,Whole Blood 134 mg/dL (75-99)
--- NOTE | 2021-12-24 11:34 | XR ---
EXAMINATION TYPE: XR cervical spine 1V DATE OF EXAM: 12/24/2021 COMPARISON: NONE HISTORY: Hardware placement TECHNIQUE: One view submitted FINDINGS: Postsurgical changes are seen at levels C3 through the lower cervical spine. Soft tissue ov erlap obscures the lower cervical spine. Alignment near-anatomic. Suggestion of an ET tube. Multileve l facet arthropathy. IMPRESSION: Postoperative change.
[2021-12-24] MEDS: SODIUM CHLORIDE 0.9% 1,000 ML IV SCH (15:08)
[2021-12-25] MEDS: SODIUM CHLORIDE 0.9% 1,000 ML IV SCH (01:25)
[2021-12-25 07:35] VITALS: BP 146/86; PULSE 56; RESP 18; TEMP 98.5
[2021-12-25] MEDS ORDERED: SENNOSIDES-DOCUSATE SODIUM 1 EACH TAB PO SCH (09:00)
--- NOTE | 2021-12-25 09:46 | P.CONS ---
History of Present Illness - Reason for Consult Consult date: 12/25/21 Medical management - Chief Complaint Elective cervical fusion surgery. - History of Present Illness Patient is a 62-year-old male with a known history of prostate cancer s/p surgery, joint replacement and numbness and tingling bilaterally arms and severe cervical stenosis., Admitted to the hospital for elective anterior cervical decompression with discectomy and fusion C3-4, see 4 5, C5-6 and C6-7. Patient tolerated the procedure well. Currently pain is controlled. No complaints of chest pain or shortness of breath. No nausea vomiting or abdominal pain or diarrhea. No headache or dizziness or lightheadedness. No fever no chills. Denies any recent illnesses. Patient states that his numbness in in the arms is better today. Review of Systems Constitutional: Patient denies any fever or chills . No generalized weakness or weight loss. Abdomen: Patient denied nausea vomiting and diarrhea and abdominal pain. Cardiovascular: Patient denies any chest pain or short of breath no palpitations. Respiratory: patient denied any cough or sputum production. No shortness of breath Neurologic: Patient denied any numbness or tingling headache. Musculoskeletal: Patient denies any complaints of joint swelling or deformity. Skin: Negative Psychiatric: Negative Endocrine: No heat or cold intolerance. No recent weight gain. Genitourinary: No dysuria or hematuria. All other 14 point ROS negative except the above Past Medical History Past Medical History: Cancer Additional Past Medical History / Comment(s): hx prostate cancer, numbness and tingling [place]ber[place] hands and arms History of Any Multi-Drug Resistant Organisms: None Reported Past Surgical History: Hernia Repair, Joint Replacement, Prostate Surgery Additional Past Surgical History / Comment(s): Rt shoulder replacement, prostatectomy, anterior cervical decompression and fusion (12/24/21), Past Anesthesia/Blood Transfusion Reactions: No Reported Reaction Past Psychological History: No Psychological Hx Reported Smoking Status: Never smoker Past Alcohol Use History: Occasional Past Drug Use History: None Reported - Past Family History Mother Family Medical History: No Reported History Medications and Allergies Home Medications Medication Instructions Recorded Confirmed Type Cyclobenzaprine [Flexeril] 10 mg PO TID PRN #21 tab 12/25/21 Rx HYDROcodone/APAP 5-325MG [[place] 5] 1 each PO Q6HR PRN #28 tab 12/25/21 Rx Allergies Allergy/AdvReac Type Severity Reaction Status Date / Time ampicillin AdvReac Nausea & Verified 12/24/21 06:38 Vomiting Physical Exam Vitals: Vital Signs Temp Pulse Resp BP Pulse Ox 12/25/21 07:34 98.5 F 56 L 18 146/86 99 12/25/21 02:03 98.6 F 63 16 138/82 96 12/24/21 20:00 98.3 F 71 18 144/79 95 12/24/21 15:30 63 146/91 97 12/24/21 15:15 64 156/94 98 12/24/21 15:00 60 145/87 98 12/24/21 14:45 69 150/92 98 12/24/21 14:30 59 L 143/83 98 12/24/21 14:15 63 146/89 99 12/24/21 14:00 61 148/77 98 12/24/21 13:45 97.5 F L 71 141/75 99 12/24/21 13:21 66 16 142/78 97 12/24/21 12:45 58 L 16 148/79 97 12/24/21 12:30 62 16 149/84 97 12/24/21 12:15 65 16 139/79 95 12/24/21 12:00 66 16 148/77 94 L 12/24/21 11:45 63 16 143/77 96 12/24/21 11:34 61 16 148/79 98 12/24/21 11:19 64 16 147/77 98 12/24/21 11:04 97 F L 68 16 154/76 97 Intake and Output 12/24/21 12/25/21 12/25/21 22:59 06:59 14:59 Intake Total 750 Balance 750 Intake: Intake, IV Titration 750 Amount Sodium Chloride 0.9% 1, 750 000 ml @ 75 mls/hr IV . [id number] [facility] Rx#:[id number] Other: # Voids 2 3 PHYSICAL EXAMINATION: Patient is lying in the bed comfortably, no acute distress, awake alert and oriented.. HEENT: Normocephalic. Neck is supple. Pupils reactive. Nostrils clear. Oral cavity is moist. Neck reveals no JVD, carotid bruits, or thyromegaly. CHEST EXAMINATION: Trachea is central. Symmetrical expansion. Lung collier clear to auscultation and percussion. CARDIAC: Normal S1, S2 with no gallops. No murmurs ABDOMEN: Soft. Bowel sounds normal. No organomegaly. No abdominal bruits. Extremities: reveal no edema. No clubbing or cyanosis Neurologically awake, alert, oriented x3 with well-coordinated movements. No focal deficits noted Skin: No rash or skin lesions. Psychiatric: Cooperative. Nonsuicidal Musculoskeletal: No joint swelling or deformity. Normal range of motion. Results Labs: Abnormal Lab Results - Last 24 Hours (Table) 12/24/21 Range/Units 11:06 POC Glucose (mg/dL) 134 H (75-99) mg/dL Assessment and Plan Assessment: Cervical stenosis. Status post elective cervical fusion surgery. Postoperative day 1. Bilateral upper extremity numbness and tingling sensation secondary cervical stenosis and possible radiculopathy History of prostate cancer status post prostate resection History of joint replacement. DVT prophylaxis with SCDs Plan: Patient will be continued on current pain management, bowel regimen. DVT prophylaxis with SCDs. Encourage incentive spirometry and ambulation PT OT was consulted. Patient is tolerating oral diet otherwise. We will continue to follow and further recommendations based on clinical course. Thank you for your consult.
[2021-12-25] MEDS: LACTATED RINGERS 1,000 ML IV SCH (10:02)
--- NOTE | 2021-12-25 10:28 | P.DS ---
Providers Date of admission: 12/25/21 08:35 Attending physician: Stephanie Welch Primary care physician: [facility] Course: The patient presented on the day of admission as per their operative note. He had severe cervical spinal stenosis with disc herniation C3 4 C4 5 C5 6 C6 7 with upper extremity radiculopathy and some early myelopathy issues. He underwent his surgery for anterior cervical decompression with discectomy and fusion at those levels. He says his arms are already doing some better. He notices less pain and improved sensation. He is voiding freely. He is ambulatory and tolerating his soft diet well. Physical Exam The incision site is clean dry and intact. There is no erythema no drainage. There is no purulence no evidence of infection. His neck is soft and supple. There is no signal and swelling there is no drainage. Abdomen soft and nontender. Chest has good excursion with deep inspiration and expiration. The patient has active and passive range of motion intact at the upper and lower extremities. There is no acute change in neurologic status. He says he feels he moving his upper extremities better Hospital Course Postoperative day #1 status post anterior cervical decompression with discectomy and fusion C3 4 C4 5 C5 6 and C6 7 for his severe cervical stenosis with disc herniation and cervical myelopathy. The patient has been making good progress postoperatively. He may increase his diet as tolerates. He is given appropriate instructions with his collar. They have completed the prophylactic antibiotics without any signs or symptoms of infection. The patient has been able to advance their diet, and is tolerating diet adequately. The pain was initially controlled with IV medications and is now controlled appropriately with oral medications. The patient has been able to increase their mobilization. The patient has progressed appropriately. I think they are in good stable condition for discharge today. They will be sent home with appropriate prescriptions. I answered their questions to the best of my ability in a language that they can understand and they are agreeable with the plan. They will follow up as directed in approximately 2 weeks or sooner if he is having any problems. Patient Condition at Discharge: Good Plan - Discharge Summary Discharge Rx Participant: No New Discharge Prescriptions: New Cyclobenzaprine [Flexeril] 10 mg PO TID PRN #21 tab PRN Reason: Spasms HYDROcodone/APAP 5-325MG [[place] 5] 1 each PO Q6HR PRN #28 tab PRN Reason: Pain Discharge Medication List Cyclobenzaprine [Flexeril] 10 mg PO TID PRN #21 tab 12/25/21 [Rx] HYDROcodone/APAP 5-325MG [[place] 5] 1 each PO Q6HR PRN #28 tab 12/25/21 [Rx] Discharge Disposition: HOME SELF-CARE
== END 2021-12-25 12:05 | disposition home or self-care (01) ==
LOC: OR 06:21 → 4SSUR 12:49 → OR 12-25 08:29 → 4SSUR 12-25 08:35
PROVIDERS: ADMIT Orthopaedic Surgery Orthopaedic Surgery of the Spine; ATTEND Orthopaedic Surgery Orthopaedic Surgery of the Spine
DX: M48.02 Spinal stenosis, cervical region (principal); M50.01 Cervical disc disorder with myelopathy, high cervical region; M50.11 Cervical disc disorder with radiculopathy, high cervical region; G95.89 Other specified diseases of spinal cord; Z85.46 Personal history of malignant neoplasm of prostate; Z98.890 Other specified postprocedural states; Z96.611 Presence of right artificial shoulder joint; Z90.79 Acquired absence of other genital organ(s); Z88.0 Allergy status to penicillin
CPT/HCPCS: 22551; 22552 ×3; 20931; 72020; 22846; G0378; L0120 ×2; C1713 ×2; C1762 ×2; J2250; J2710; J0690 ×3; J2405; J2001; J3010; J1170; J1100; J0330; J2704

== ENCOUNTER → 2022-09-24 | Outpatient (CLI) | payer BC ==
--- NOTE | 2022-09-29 08:32 | US ---
EXAMINATION TYPE: US scrotum with doppler. TECHNIQUE: Grayscale and color Doppler Duplex imaging performed of the scrotum. DATE OF EXAM: 09/24/2022 COMPARISON: NONE CLINICAL HISTORY: 62-year-old male D29.32 BENIGN NEOPLASM OF LEFT EPIDIDYMIS. Pain left FINDINGS: EXAM MEASUREMENTS: TESTICLES: Right Testicle: 4.6 x 1.9 x 3.2 cm Left Testicle: 4.9 x 2.3 x 3.3 cm EPIDIDYMIS HEAD: Right Epididymis: 1.0 x .6 cm Left Epididymis: .8 x 1.1 cm cystic area .4 x .5 cm. Doppler performed to assess for testicular vascularity; good bilateral color flow and waveforms are s een. There is no evidence of testicular torsion. Presence of hydroceles: no Presence of varicoceles: no Valsalva shows the appearance of a 2.4 cm heterogeneous area in the left hemiscrotum. The traffic attendant reports that no apparent mass or hernia was identified on real-time scanning. Because of the appeara nce on image, the patient was brought back on 09/28/2022 in this region was reassessed. No discrete ma ss or hernia is identified here. IMPRESSION: 1. No evidence for testicular torsion or testicular mass. 2. The patient was brought back for reassessment of a questionable area in the left hemiscrotum which does not persist. No intrascrotal mass or intrascrotal hernia is identified. 3. A 5 mm epididymal head cyst on the left.
== END | disposition home or self-care (01) ==
LOC: RADUSWWP 08:08
PROVIDERS: ATTEND Family Medicine
DX: D29.32 Benign neoplasm of left epididymis (principal); N50.3 Cyst of epididymis
CPT/HCPCS: 76870; 93975

== ENCOUNTER → 2023-07-20 | Outpatient (CLI) | payer BC ==
--- NOTE | 2023-07-21 08:18 | XR ---
EXAMINATION TYPE: XR Hip Complete LT DATE OF EXAM: 07/20/2023 COMPARISON: NONE HISTORY: Pain TECHNIQUE: 2 views submitted FINDINGS: There is no evidence of erosive change or acute fracture. Spurring along the greater trochanter. Mild left hip arthropathy. IMPRESSION: 1. Mild left hip arthropathy. 2. Greater trochanteric spurring can be associated with trochanteric bursitis..
--- NOTE | 2023-07-21 08:33 | XR ---
EXAMINATION TYPE: XR abdomen 1V DATE OF EXAM: 07/20/2023 COMPARISON: NONE HISTORY: Pain TECHNIQUE: One view abdominal series FINDINGS: The osseous structures are intact. The bowel gas pattern is nonspecific. Lung bases are clear. 2 mm mid left renal calculus. Retained fecal debris throughout the colon. Scoliosis with degenerative radha nges in the spine. Hypertrophic arthropathy of the hip. Cannot exclude sclerosis along the left SI alysa int. IMPRESSION: 1. Nonspecific abdomen. No obstruction correlate for constipation. 2. Punctate 2 mm left renal calculus suspected.
== END | disposition home or self-care (01) ==
LOC: RADXRYALE 15:50
PROVIDERS: ATTEND Family Medicine
DX: M16.12 Unilateral primary osteoarthritis, left hip (principal); M77.8 Other enthesopathies, not elsewhere classified; M54.50 Low back pain, unspecified; R10.9 Unspecified abdominal pain
CPT/HCPCS: 73502; 74018

== ENCOUNTER → 2023-11-26 | Outpatient (CLI) | payer BC ==
--- NOTE | 2023-11-26 10:09 | CT ---
EXAMINATION: CT ABDOMEN AND PELVIS WITH IV CONTRAST DATE OF EXAMINATION: 11/26/2023. COMPARISON: None available. INDICATION: Right upper quadrant pain with change in bowel habits. PROCEDURE: Axial CT of the abdomen and pelvis was performed with contrast and sagittal and coronal reformatted images were performed. CT dose lowering techniques were used, to include: automated expos ure control, adjustment for patient size, and/or use of iterative reconstruction. 100 mL of Isovue 30 0 was given intravenously. FINDINGS: LOWER CHEST : The visualized lung bases are clear. There are no pleural or pericardial effusions. ABDOMEN: Liver and Biliary system: Normal. Adrenal glands: Normal. Kidneys and ureters: 4 mm nonobstructing stone is seen in the interpolar region of the left kidney. C yst is seen in the inferior pole of the left kidney measuring 3.1 cm. The right kidney appears unrema rkable Spleen: Normal. Pancreas: Normal. Gallbladder: Normal. Lymph nodes, Peritoneum and mesentery: There is no mesenteric or retroperitoneal lymphadenopathy. Gastrointestinal tract: There are no dilated loops of bowel or free intraperitoneal air. The appe ndix is not clearly seen with no secondary changes of appendicitis otherwise identified. Aorta/IVC: There is mild vascular calcification throughout the abdominal aorta without evidence of aneurysmal dilation or dissection. IVC normal. Abdominal wall: Normal. PELVIS: Fluid: There is no free fluid in the pelvis. Lymph Nodes: There is no pelvic or inguinal lymphadenopathy.. Urinary bladder: Normal. BONES: Scattered degenerative disc and facet changes are seen throughout the spine. There are no acu te osseous abnormalities.. ADDITIONAL SIGNIFICANT FINDINGS: Prior prostatectomy.. IMPRESSION: 1. No acute process seen within the abdomen or pelvis. 2. Nonobstructing left renal stone.
== END | disposition home or self-care (01) ==
LOC: RADCTMAIN 06:29
PROVIDERS: ATTEND Family Medicine
DX: N20.0 Calculus of kidney (principal); R19.4 Change in bowel habit; Z85.46 Personal history of malignant neoplasm of prostate
CPT/HCPCS: 74177; Q9967

== ENCOUNTER → 2024-02-08 | Day surgery (SDC) | payer BC ==
[2024-02-04 11:02] VITALS: BMI 30.2
[~2024-02-08] MED LIST changes: +LIDOCAINE 1% (10MG/ML) FOR IV START INTRADERMA PRN; +PROPOFOL 10 MG/ML 20 ML VIAL IV ONE; -ceFAZolin 1,000 MG in SODIUM CHLORIDE 0.9% IRRIGATIO 1,000 ML IRRIGATION PRN
[2024-02-08 09:49] VITALS: TEMP 97.2
[2024-02-08] MEDS: LACTATED RINGERS 1,000 ML IV SCH (09:55)
--- NOTE | 2024-02-08 10:37 | P.PCN ---
Date of Procedure: 02/08/24 Procedure(s) Performed: BRIEF HISTORY: Patient is a 63-year-old pleasant white male scheduled for an elective colonoscopy as a part of evaluation of change in bowel habits for the last 6 months duration. He also has by history of colon polyps. PROCEDURE PERFORMED: Colonoscopy. PREOPERATIVE DIAGNOSIS: Change in bowel habits and history of colon polyp. IV sedation per Anesthesia. PROCEDURE: After informed consent was obtained, the patient, was brought into the endoscopy unit. IV sedation was administered by Anesthesia under continuous monitoring. Digital rectal examination was normal. Initially the Olympus CF-160 flexible video colonoscope was then inserted in the rectum, gradually advanced i nto the cecum without any difficulty. Careful examination was performed as the scope was gradually being withdrawn. Ileocecal valve and the appendiceal orifice were visualized and appeared normal. Prep was fair. t. Mucosa of the cecum, ascending colon, transverse colon, descending colon, sigmoid colon, and rectum appeared normal. Retroflexion was performed in the rectum and no lesions were seen. The patient tolerated the procedure well. IMPRESSION: Normal-appearing colon from rectum to cecum with no evidence of colorectal neoplasia. RECOMMENDATIONS: Findings of this examination were discussed with the patient as well as his family.. He was advised to be on high-fiber diet and take fiber supplements on a regular basis. Recommend repeat screening colonoscopy in 10 years.
[2024-02-08 10:48] VITALS: RESP 12
[2024-02-08 11:46] VITALS: BP 129/77; PULSE 64
== END ==
LOC: ORWHC2ENDO 09:20
PROVIDERS: ATTEND Internal Medicine Gastroenterology
DX: R19.4 Change in bowel habit (principal); Z86.010 Personal history of colon polyps; Z88.1 Allergy status to other antibiotic agents; Z85.46 Personal history of malignant neoplasm of prostate
CPT/HCPCS: 45378; J2704

== ENCOUNTER → 2024-02-15 | Outpatient (CLI) | payer BC ==
--- NOTE | 2024-02-15 17:00 | XR ---
EXAMINATION TYPE: XR chest 2V DATE OF EXAM: 02/15/2024 COMPARISON: 11/28/2021 HISTORY: 63-year-old male [id number], acute cough TECHNIQUE: Frontal and lateral views FINDINGS: The heart is normal size. Aorta and pulmonary vasculature within normal limits. Partially visualized right shoulder arthroplasty and ACDF hardware. There is a cavitary lesion in the right upper lobe jake suring 4.4 cm with a small air-fluid level suggested. No other consolidation or pleural effusion. IMPRESSION: A 4.4 cm cavitary lesion right upper lobe. Consider atypical mycobacterial or fungal infections versu s cavitary lung cancer. The presence of an air-fluid level could represent superinfection.
== END | disposition home or self-care (01) ==
LOC: RADXRYALE 16:23
PROVIDERS: ATTEND Family Medicine
DX: J98.4 Other disorders of lung (principal)
CPT/HCPCS: 71046

== ENCOUNTER → 2024-02-23 | Outpatient (CLI) | payer BC ==
--- NOTE | 2024-02-23 17:50 | CT ---
EXAMINATION TYPE: CT chest w con DATE OF EXAM: 02/23/2024 COMPARISON: Chest CT March 29, 2020. Most recent chest x-ray 8 days ago HISTORY: Abnormal finding on prior XR. CT DLP: 357.9 mGycm. Automated Exposure Control for Dose Reduction was Utilized. TECHNIQUE: CT scan of the thorax is performed following with IV Contrast, patient injected with 100 mL of Isovue 300. FINDINGS: LUNGS: Confirmation of peripheral right upper lobe thick-walled cavitary lesion particularly along th e lateral aspect measuring 2.7 x 2.2 x 2.5 cm axial image 22 and coronal image 63. Left lung is clear . No pleural effusion or pneumothorax seen bilaterally. MEDIASTINUM: There are no greater than 1 cm hilar or mediastinal lymph nodes. No cardiomegaly or pe ricardial effusion is seen. OTHER: Mild to moderate multilevel spurring in the spine. IMPRESSION: Confirmation of 2.7 cm thick-walled cavitary lesion in the periphery of the right upper l obe. Differential includes pulmonary infection/abscess, primary lung carcinoma such as squamous cell carcinoma, other etiologies not excluded. Clinical correlation and follow-up is advised.
== END | disposition home or self-care (01) ==
LOC: RADCTMAIN 17:14
PROVIDERS: ATTEND Family Medicine
DX: J98.4 Other disorders of lung (principal); R93.89 Abnormal findings on diagnostic imaging of other specified body structures
CPT/HCPCS: 71260; Q9967

== ENCOUNTER → 2024-03-10 | Outpatient (CLI) | payer BC ==
--- NOTE | 2024-03-12 08:50 | PE ---
EXAMINATION TYPE: PET CT fusion skull to thigh DATE OF EXAM: 03/10/2024 CLINICAL INDICATION:Male, 63 years old with history of R91.1 LUNG NODULE; TECHNIQUE: Following the intravenous administration of 12.85 mCi of F-18 FDG, whole body images are performed from the skull base to the midthigh. Images are reviewed on the computer in the coronal, axial, and sagittal planes. Reconstructed rotating images are created on independent workstation and reviewed on the computer. A non-contrast CT is performed in conjunction with the PET scan. Glucose level 101 mg/dL CT DLP: 781.07 mGycm, Automated exposure control for dose reduction was used. COMPARISON: CT 11/26/2023 02/23/2024, PET/CT None, MRI: None FINDINGS: Mediastinal SUV mean is 1.7. Hepatic parenchyma SUV mean is 2.4. SKULL BASE AND NECK: No suspicious radiotracer activity. CHEST, MEDIASTINUM, AND HILAR REGION: Part cystic/solid right upper lung posterior pulmonary nodule with FDG activity within the solid nodu lar component posteriorly max SUV 3.3. Solid component measuring 11 mm. Opacities in the right lung anteriorly which are somewhat groundglass max SUV 2.3. ABDOMEN AND PELVIS: No suspicious radiotracer activity. MUSCULOSKELETAL STRUCTURES: No suspicious radiotracer activity. Uptake at the inferior cervical spine fixation hardware makes SUV 7.[address]: Cardiomegaly. Fixation hardware in the right shoulder appears grossly intact. Fixation gregg ges in the cervical spine with hardware intact. IMPRESSION: 1. Right upper lung posterior part cystic/partly solid pulmonary nodule with mild uptake in the mariangel d component concerning for neoplastic process until proven otherwise. 2. Additional ground glass opacity more anteriorly in the right upper lung possibly representing inf ectious/inflammatory process versus less likely malignancy. Attention follow-up imaging of this dago swapnil
== END | disposition home or self-care (01) ==
LOC: RADPETMAIN 07:06
PROVIDERS: ATTEND Internal Medicine Critical Care Medicine
DX: R91.1 Solitary pulmonary nodule (principal)
CPT/HCPCS: 78815; A9552

== ENCOUNTER 2024-03-29 11:40 | Day surgery (SDC) | payer BC ==
[2024-03-27 09:34] VITALS: BMI 30.2
[~2024-03-29 11:40] MED LIST changes: +LACTATED RINGERS 1,000 ML IV SCH; -LIDOCAINE 1% (10MG/ML) FOR IV START INTRADERMA PRN; -PROPOFOL 10 MG/ML 20 ML VIAL IV ONE
[2024-03-29] MEDS: LACTATED RINGERS 1,000 ML IV SCH (12:11)
[2024-03-29] MEDS: IV FLUID CONTINUATION 1,000 ML IV ONE (12:11)
[2024-03-29] MEDS: ATROPINE SULFATE 0.4 MG/ML 1 ML VIAL IM ONE (12:13)
[2024-03-29] MEDS ORDERED: ROCURONIUM 10 MG/ML (5 ML VIAL) IV ONE (12:32)
[2024-03-29] MEDS ORDERED: SUGAMMADEX SODIUM 200 MG/2 ML SDV IV ONE (12:32)
[2024-03-29] MEDS ORDERED: MIDAZOLAM 2 MG/2 ML VIAL ONE (12:32)
[2024-03-29] MEDS ORDERED: PROPOFOL 10 MG/ML 20 ML VIAL IV ONE (12:32)
[2024-03-29] MEDS ORDERED: SUCCINYLCHOLINE CHLORIDE 200 MG/10 ML VIAL IV ONE (12:32)
[2024-03-29] MEDS ORDERED: PHENYLEPHRINE-0.9% NACL SYG 1,000 MCG/10 ML SYRINGE ONE (12:32)
[2024-03-29] MEDS ORDERED: fentaNYL (PF) 50 MCG/ML 2 ML AMP ONE (12:32)
[2024-03-29 13:42] VITALS: TEMP 97.3
--- NOTE | 2024-03-29 13:54 | PCN ---
PROCEDURE NOTE PROCEDURES PERFORMED: Bronchoscopy, airway examination, therapeutic lavage, BAL, brushings right upper lobe and transbronchial and endobronchial biopsies right upper lobe. PREOPERATIVE DIAGNOSIS: Thick wall cavity, right upper lobe. POSTOPERATIVE DIAGNOSIS: Thick wall cavity, right upper lobe. CUTTER OUT: Dr. Golden. FIRST OBSTETRICS TECH: Terrie Grider. DESCRIPTION OF PROCEDURE: The patient's procedure took place in [facility] room #1. Anesthesia provided general endotracheal anesthesia. There was informed consent and universal timeout. Once the patient was under the effects of anesthesia, the bronchoscope was inserted through the bronchoscope, adapter connected to the endotracheal tube. We did a thorough inspection of the right upper lobe and its 3 segments, right middle lobe and its 2 segments, right lower lobe and its 5 segments, left upper lobe proper and its 2 segments, lingula and its 2 segments and left lower lobe and its 4 segments. There was no definitive mass or tumor. The mucosa appeared normal. Next, under fluoroscopic guidance, we brushed the right upper lobe. Next, again, under fluoroscopic guidance, we did multiple transbronchial and endobronchial biopsies in the right upper lobe, primarily in the posterior segment. Next we did a BAL in the right upper lobe. The patient tolerated procedure well. There was minimal bleeding. We ensured hemostasis before the bronchoscope was withdrawn. The patient tolerated the procedure well, was stable throughout the procedure. A chest x-ray will be ordered. There was no obvious pneumothorax on fluoroscopy. The patient will be recovered. Samples will be sent to the laboratory for analysis. MMODL / IJN: [id number] /
[2024-03-29 14:15] VITALS: RESP 18
--- NOTE | 2024-03-29 14:47 | XR ---
EXAMINATION TYPE: XR chest 1V DATE OF EXAM: 03/29/2024 COMPARISON: 02/15/2024 HISTORY: 63-year-old male post bronchoscopy on the right TECHNIQUE: Single frontal view of the chest is obtained. FINDINGS: Right shoulder arthroplasty. ACDF hardware. Heart borderline in size. Minimal residual den sity noted in the right upper lobe at the site of previous cavitary change. No appreciable pneumothor ax. No consolidation or pleural effusion seen. IMPRESSION: No appreciable pneumothorax or other acute process. The previous right upper lobe cavity shows only subtle residual density.
[2024-03-29 14:53] VITALS: BP 136/86
[2024-03-29 14:56] VITALS: PULSE 51
[2024-03-29 19:57] LABS: Appearance,BF Bloody (Clear); RBC, Body Fluid 13225 /UL (0-2000)
--- NOTE | 2024-03-29 21:22 | FL ---
EXAMINATION TYPE: FL bronchoscopy DATE OF EXAM: 03/29/2024 FLUOROSCOPY Bronchoscopy right lobe Fl time- 1 min 50 sec DAP- 3.6349 Gycm2 4 images submitted.
[2024-03-30 08:56] LABS: Nucleated Cells, Body Fluid 160 /UL
== END 2024-03-29 15:17 | disposition home or self-care (01) ==
LOC: ORWHC2ENDO 11:40
PROVIDERS: ATTEND Internal Medicine Critical Care Medicine
DX: J98.4 Other disorders of lung (principal); Z98.890 Other specified postprocedural states
CPT/HCPCS: 87798 ×3; 87496; 87498; 87529; 88104; 88108; 88305; 89050; 87502; 87634; 87070; 87205; 87116; 87102; 87206; 87635; 71045; 31628; 31623; 31624; J2250; J0330; J0461; J3010; J2704; J2371

== ENCOUNTER → 2024-06-05 | Outpatient (CLI) | payer BC ==
--- NOTE | 2024-06-06 12:33 | CT ---
EXAMINATION TYPE: CT chest w con DATE OF EXAM: 06/05/2024 COMPARISON: 02/23/2024 HISTORY: Pulmonary nodules CT DLP: 413 mGycm Automated exposure control for dose reduction was used. CONTRAST: CT scan of the chest is performed with IV Contrast, patient injected with 100 mL of Isovue 300. FINDINGS: LUNGS: There is a small spiculated nodule noted at the site of previously identified cavitary nodule with current measurement of 1.5 x 1.2 cm versus 2.7 x 2.3 cm. Tiny groundglass density 3 mm in size i mage 30 right lower lobe. The lungs are otherwise clear. No pleural effusion. MEDIASTINUM: There are no greater than 1 cm hilar or mediastinal lymph nodes. No pericardial effusi on is seen. Thoracic aorta is of normal caliber. The heart is not enlarged. UPPER ABDOMEN: No significant abnormality appreciated. OTHER: No additional significant abnormality is seen. IMPRESSION: There is a small spiculated nodule noted at the site of previously identified cavitary nodule with cu rrent measurement of 1.5 x 1.2 cm versus 2.7 x 2.3 cm. Tiny groundglass density 3 mm in size image 30 right lower lobe. [facility], , 06/06/2024 12:31 PM
== END | disposition home or self-care (01) ==
LOC: RADCTMAIN 07:07
PROVIDERS: ATTEND Internal Medicine Critical Care Medicine
DX: R91.1 Solitary pulmonary nodule
CPT/HCPCS: 71260

== ENCOUNTER → 2024-12-08 | Outpatient (CLI) | payer BC ==
[2024-12-08 07:32] LABS: African American GFR (CKD) >90 (>60 ml/min/1.73 sqM); Blood Urea Nitrogen 19 mg/dL (9-20); Non-African American GFR(CKD) 82 (>60 ml/min/1.73 sqM)
--- NOTE | 2024-12-08 08:51 | CT ---
EXAMINATION TYPE: CT chest w con CT DLP: 483 mGycm, Automated exposure control for dose reduction was used. DATE OF EXAM: 12/08/2024 8:38 AM COMPARISON: CT chest 06/05/2024, 02/23/2024, 03/29/2020, 08/29/2019, 07/07/2018, PET/CT 03/10/2024 CLINICAL INDICATION:Male, 64 years old with history of R91.1 SPN; PHH, LUNG NODULE F/U. PRIOR ON PACS . TECHNIQUE: Multiple axial images were obtained through the chest following the administration of 100 cc of Isovue 300. . Coronal and sagittal reformats reviewed. FINDINGS: LUNGS/ PLEURA: No pleural effusion, pneumothorax, focal consolidation. Stable left upper lobe subpleu ral 3.8 mm pulmonary nodule (series 4, image 16). Stable left upper lobe subpleural 3 mm pulmonary no dule (series 4, image 28). Stable posterior right upper lobe irregular nodular opacity measuring up to 1.4 cm (series 4, image 18). Stable subpleural posterior right upper lobe 3.5 mm pulmonary nodule (series 4, image 29). AIRWAY: Patent and unremarkable.. HEART: Size within normal limits.No pericardial effusion No significant coronary artery calcification s. Small aortic valvular calcifications. MEDIASTINUM: No evidence of adenopathy. VASCULATURE: No aortic aneurysm. MUSCULOSKELETAL: No acute osseous abnormalities partial visualization of right shoulder prosthesis an d anterior cervical fusion hardware. No aggressive osseous lesion. Mild retrolisthesis of L1 on L2. M ild multilevel degenerative disc disease. SOFT TISSUES/LYMPH NODES: Minimal bilateral gynecomastia. LOWER NECK: No significant findings. UPPER ABDOMEN: Impression left renal 3.2 cm cyst. No follow-up recommended. IMPRESSION: Stable posterior right upper lobe irregular nodular opacity at site of previously identified cavitary lesion. This measures up to 1.4 cm and could represent scarring however underlying malignancy is not excluded. Additional few scattered stable subpleural pulmonary micronodules. No new or enlarging pul monary nodule. Consider follow-up CT chest in 6-12 months. [facility], , 12/08/2024 8:49 AM
== END | disposition home or self-care (01) ==
LOC: RADCTMAIN 06:48
PROVIDERS: ATTEND Internal Medicine Critical Care Medicine
DX: R91.1 Solitary pulmonary nodule (principal); J98.4 Other disorders of lung; R91.8 Other nonspecific abnormal finding of lung field
CPT/HCPCS: 82565; 84520; 71260; 36415; Q9967